=== PATIENT | male | born 1970 | race African-American/Black ===

== ENCOUNTER 2016-10-09 16:57 | Emergency (ER) | payer BC ==
[~2016-10-09] VITALS: Ht 193 cm; Wt 117.1 kg
[~2016-10-09 16:57] MED LIST: AMARYL1 MG PO; AMARYL2 MG PO; ASPIRIN81 M2 PO; BACTRIM,SEPT1 TABLET PO; CHILD ASPIRIN81 M1 PO; CYCLOBENZAPRINE10 MG PO; HYDROCHLOROTH12.5 M3 PO; IBUPROFEN800 MG PO; LANTUS 3 M100 UNITS1 SC; LISINOPRIL2.5 MG PO; LISINOPRIL20 MG PO; MECLIZINE HCL25 MG PO; NORCO 5/3251 TABLET PO; OXYCODONE-APAP1 EAC6 PO; OXYCODONE-APAP1 EACH PO; PERCOCET 7.51 TABLET PO; SILVADENE20 GM TP; TYLENOL WITH C1 EACH PO; VALIUM2 MG PO; VITAMIN D31000 UNIT PO; ZESTORETIC 20-1 EAC1 NG; ZESTORETIC 20-1 EAC1 PO
[2016-10-09 17:41] LABS: HEMATOCRIT 41.2 % (38.0-50.0); MCH 27.2 PG (29.0-34.0); MCHC 32.5 G/DL (30.0-36.0); MCV 83.7 FL (86-99); MEAN PLAT.VOLUME 10.2 uM^3 (9.0-12.4); PLATELET COUNT 371 K/uL (156-360); RBC DIS.WIDTH-CV 13.2 % (11.8-14.6); RBC DIS.WIDTH-SD 40.5 % (39-53); RED BLOOD COUNT 4.92 M/uL (4.00-5.50); WHITE BLOOD COUNT 7.5 K/uL (4.1-10.2)
[2016-10-09 17:48] LABS: CHLORIDE 100 mEq/L (99-109); POTASSIUM 4.3 mEq/L (3.7-5.4); SODIUM 136 mEq/L (136-147)
[2016-10-09 17:51] LABS: GLUCOSE 131 mg/dL (70-99)
[2016-10-09 17:52] LABS: ANION GAP 13 MEQ/L (2-14)
[2016-10-09 17:53] LABS: TOTAL BILIRUBIN 0.4 mg/dL (0.0-1.0)
[2016-10-09 17:54] LABS: ALKALINE PHOSPHATASE 61 IU/L (3-129); GFR ESTIMATE (CALCULATED) 33 mL/min/
[2016-10-09 17:55] LABS: UREA NITROGEN (BUN) 32 mg/dL (9-23)
[2016-10-09 17:58] LABS: LIPASE 54 U/L (1.0-51.0)
[2016-10-09 19:41] LABS: CREATINE KINASE 790 IU/L (1-294); TOTAL CK 790 IU/L (1-294)
[2016-10-09 19:48] LABS: CK-MB 3.8 ng/mL (0.0-4.9)
[2016-10-09 20:00] LABS: ADD MIUA? NO; BILIRUBIN NEGATIVE; BLOOD NEGATIVE; COLOR YELLOW ((YELLOW)); GLUCOSE (STRIP) NEGATIVE; KETONES NEGATIVE; LEUKOCYTES NEGATIVE; NITRITE NEGATIVE; PROTEIN (STRIP) 30; SPECIFIC GRAVITY 1.015 (1.000-1.030); UCUL ADDED? NO; UROBILINOGEN 0.2 MG/DL (0.2-1.0)
[2016-10-09 22:02] VITALS: BP 150/87
== END 2016-10-09 22:02 | disposition home or self-care (01) ==
LOC: EME 16:57
DX: E86.0 Dehydration (principal); N28.9 Disorder of kidney and ureter, unspecified; I10 Essential (primary) hypertension; E11.9 Type 2 diabetes mellitus without complications; Z79.4 Long term (current) use of insulin
CPT/HCPCS: 80053; 81003; 82550; 82553; 83690; 85027; 99281; 99285; J7030

== ENCOUNTER 2017-03-11 01:54 | Observation (INO) | payer BC ==
[~2017-03-11] VITALS: Ht 193 cm; Wt 116.4 kg
[~2017-03-11 01:54] MED LIST changes: +ZESTORETIC 20-1 EAC2 PO
[2017-03-11 02:24] LABS: HEMATOCRIT 34.3 % (38.0-50.0); MCHC 33.5 G/DL (30.0-36.0); MCV 83.5 FL (86-99); PLATELET COUNT 354 K/uL (156-360); RBC DIS.WIDTH-CV 12.7 % (11.8-14.6); RBC DIS.WIDTH-SD 38.5 % (39-53); RED BLOOD COUNT 4.11 M/uL (4.00-5.50); WHITE BLOOD COUNT 5.5 K/uL (4.1-10.2)
[2017-03-11 02:34] LABS: CHLORIDE 101 mEq/L (99-109); POTASSIUM 3.6 mEq/L (3.7-5.4)
[2017-03-11 02:35] LABS: SODIUM 137 mEq/L (136-147)
[2017-03-11 02:36] LABS: GLUCOSE 129 mg/dL (70-99)
[2017-03-11 02:38] LABS: ANION GAP 13 MEQ/L (2-14)
[2017-03-11 02:40] LABS: GFR ESTIMATE (CALCULATED) 56 mL/min/ (58.99-99999)
[2017-03-11 02:41] LABS: UREA NITROGEN (BUN) 30 mg/dL (9-23)
[2017-03-11 02:45] LABS: TROP-I INTERPRETATION NEGATIVE; TROPONIN-I < 0.01 ng/mL (0.0-0.30)
[2017-03-11 04:13] LABS: TROP-I INTERPRETATION NEGATIVE; TROPONIN-I < 0.01 ng/mL (0.0-0.30)
[2017-03-11 06:07] LABS: POINT-OF-CARE METER ID UU13113747
[2017-03-11 06:36] LABS: POINT-OF-CARE METER ID UU13113747
[2017-03-11 08:43] VITALS: BP 133/85
[2017-03-11 08:52] LABS: POINT-OF-CARE METER ID UU13113831
[2017-03-11] MEDS ORDERED: LANTUS 3 M100 UNITS1 SC (10:05)
[2017-03-11 11:38] VITALS: BP 149/71
[2017-03-11 12:14] LABS: POINT-OF-CARE METER ID UU13113831
[2017-03-11 13:26] LABS: Estimated Average Glucose 203 mg/dL (70-123); HEMOGLOBIN A1c (GLYCOHEMOGLOB) 8.7 % HGB (Below 5.7)
[2017-03-11 13:36] LABS: TROP-I INTERPRETATION NEGATIVE; TROPONIN-I < 0.01 ng/mL (0.0-0.30)
[2017-03-11 13:37] LABS: HDL CHOLESTEROL 57 MG/DL (Desirable>=40); LDL CHOLESTEROL 99 mg/dL (Desirable<100); NON-HDL CHOLESTEROL 112 mg/dL (Desirable<160); TOTAL CHOLESTEROL 169 mg/dL (Desirable<200); TRIGLYCERIDES 63 MG/DL (Normal: <150)
[2017-03-11 14:19] LABS: POINT-OF-CARE METER ID UU13113831
[2017-03-11 16:24] VITALS: BP 145/85
[2017-03-11 17:32] LABS: POINT-OF-CARE METER ID UU13113831
[2017-03-11 19:45] VITALS: BP 149/78
[2017-03-11 20:09] LABS: TROP-I INTERPRETATION NEGATIVE; TROPONIN-I < 0.01 ng/mL (0.0-0.30)
[2017-03-11 21:35] LABS: POINT-OF-CARE METER ID UU14162513
[2017-03-11] MEDS ORDERED: NITROSTAT0.4 MG SL (21:47)
[2017-03-11] MEDS ORDERED: LIPITOR80 MG PO (21:48)
== END 2017-03-11 21:54 | disposition home or self-care (01) ==
LOC: EME 01:54 → EDOF 07:34 → ENRESERV 07:37 → 5WEST 08:23
PROVIDERS: Internal Medicine; Physician Assistant
DX: R07.9 Chest pain, unspecified (principal); I12.9 Hypertensive chronic kidney disease with stage 1 through stage 4 chronic kidney disease, or unspecified chronic kidney disease; N18.3 Chronic kidney disease, stage 3 (moderate); E11.22 Type 2 diabetes mellitus with diabetic chronic kidney disease; Z79.4 Long term (current) use of insulin; E11.65 Type 2 diabetes mellitus with hyperglycemia; Z79.82 Long term (current) use of aspirin; I49.3 Ventricular premature depolarization; D64.9 Anemia, unspecified
CPT/HCPCS: 71020; 80048; 80061; 82948; 83036; 84484; 85027; 93005; G0378; J1815; J2270; J7030

== ENCOUNTER 2017-05-01 08:58 | Day surgery (SDC) | payer BC ==
[~2017-05-01] VITALS: Ht 193 cm; Wt 111.1 kg
[~2017-05-01 08:58] MED LIST changes: +LIPITOR80 MG PO; +NITROSTAT0.4 MG SL
== END 2017-05-01 17:30 | disposition home or self-care (01) ==
LOC: CATH 08:58
PROVIDERS: Internal Medicine Cardiovascular Disease
DX: R07.2 Precordial pain (principal); I49.3 Ventricular premature depolarization; R94.31 Abnormal electrocardiogram [ECG] [EKG]; I12.9 Hypertensive chronic kidney disease with stage 1 through stage 4 chronic kidney disease, or unspecified chronic kidney disease; E11.22 Type 2 diabetes mellitus with diabetic chronic kidney disease; N18.9 Chronic kidney disease, unspecified; Z79.82 Long term (current) use of aspirin; Z79.4 Long term (current) use of insulin
CPT/HCPCS: 82948; 93005; C1769; C1887; J1200; J1644; J2250; J3010; J7040